=== PATIENT | male | born 1965 | race Asian ===

== ENCOUNTER 2023-02-01 20:42 | Emergency (ER) | payer MEDICAID ==
[~2023-02-01] VITALS: Ht 175.3 cm; Wt 79.5 kg
[2023-02-01] MEDS ORDERED: ASPI81TA87 PO (21:10)
[2023-02-01] MEDS ORDERED: CARV3 PO ×2 (21:10→23:52)
[2023-02-01] MEDS ORDERED: AMLO-257 PO ×2 (21:10→23:52)
[2023-02-01] MEDS ORDERED: SPIR-37 PO (21:10)
[2023-02-01] MEDS ORDERED: POTA15TA11 PO (21:10)
[2023-02-01] MEDS ORDERED: LISI-894 PO (21:10)
[2023-02-01 22:22] LABS: INFLUENZA A-RTPCR,COMBO NEGATIVE FOR FLU A (NEGATIVE); INFLUENZA B-RTPCR,COMBO NEGATIVE FOR FLU B (NEGATIVE); RESPIRATORY SYNCYTIAL VRS-PCR NEGATIVE (NEGATIVE); SARS COVID19 RTPCR, COMBO NEGATIVE (NEGATIVE)
[2023-02-01 22:51] VITALS: BP 177/103; PULSE 72; RESP 18; TEMP 98.7
== END 2023-02-01 23:55 | disposition home or self-care (01) ==
LOC: EMS 20:44
DX: J06.9 Acute upper respiratory infection, unspecified (principal); I11.9 Hypertensive heart disease without heart failure; Z20.822 Contact with and (suspected) exposure to COVID-19
CPT/HCPCS: 99283; 0241U